=== PATIENT | female | born 1940 | race Caucasian/White ===

== ENCOUNTER 2017-03-07 14:47 | Emergency (ER) | payer MEDICARE, OTHER ==
[~2017-03-07 14:47] MED LIST: ADULT LOW DOSE81 MG PO; DILTIAZEM 24HR120 MG PO; LACTULOSE10 GM/15 M PO; PROTONIX40 MG PO; SENNA LAXATIVE1 EACH PO; SOTALOL80 MG PO; XARELTO20 MG PO
[2017-03-07 16:46] LABS: HEMOGLOBIN 13.6 gm/dl (12.3-15.3); RED BLOOD COUNT 4.21 M/UL (4.00-5.10); WHITE BLOOD COUNT 9.6 K/UL (4.5-11.0)
[2017-03-07 17:14] LABS: BUN/CREATININE RATIO 19 (0-10)
[2017-03-18] MEDS ORDERED: MIRALAX17 GM PO (08:04)
[2017-05-04] MEDS ORDERED: METOPROLOL SUCC50 MG PO (07:30)
[2017-05-04] MEDS ORDERED: DIOVAN80 MG PO (07:33)
[2017-05-04] MEDS ORDERED: SERTRALINE HCL25 MG PO (07:33)
[2017-05-04] MEDS ORDERED: HYDROCHLOROTHIA25 MG PO (07:34)
[2017-05-04] MEDS ORDERED: VERAPAMIL ER240 MG PO (07:35)
[2017-05-04] MEDS ORDERED: NORCO 5-325 TA1 EACH PO (10:07)
== END 2017-03-07 18:25 | disposition home or self-care (01) ==
LOC: ER1 14:47
PROVIDERS: Emergency Medicine
DX: K80.70 Calculus of gallbladder and bile duct without cholecystitis without obstruction (principal); K29.70 Gastritis, unspecified, without bleeding; I48.91 Unspecified atrial fibrillation; I10 Essential (primary) hypertension
CPT/HCPCS: 36415; 71010; 80053; 81001; 82150; 82550; 82553; 83690; 83874; 84484; 85025; 85610; 85730; 93005; 96374; 96375; 99284; J2270; J2405; Q9962

== ENCOUNTER 2017-03-10 08:32 | Emergency (ER) | payer MEDICARE, OTHER ==
[2017-03-10 09:47] LABS: HEMOGLOBIN 13.6 gm/dl (12.3-15.3); RED BLOOD COUNT 4.22 M/UL (4.00-5.10); WHITE BLOOD COUNT 7.6 K/UL (4.5-11.0)
[2017-03-10 10:12] LABS: BUN/CREATININE RATIO 13 (0-10)
[2017-03-18] MEDS ORDERED: MIRALAX17 GM PO (08:04)
[2017-05-04] MEDS ORDERED: METOPROLOL SUCC50 MG PO (07:30)
[2017-05-04] MEDS ORDERED: DIOVAN80 MG PO (07:33)
[2017-05-04] MEDS ORDERED: SERTRALINE HCL25 MG PO (07:33)
[2017-05-04] MEDS ORDERED: HYDROCHLOROTHIA25 MG PO (07:34)
[2017-05-04] MEDS ORDERED: VERAPAMIL ER240 MG PO (07:35)
[2017-05-04] MEDS ORDERED: NORCO 5-325 TA1 EACH PO (10:07)
== END 2017-03-10 18:30 | disposition home or self-care (01) ==
LOC: ER1 08:32
PROVIDERS: Emergency Medicine
DX: R10.9 Unspecified abdominal pain (principal); K21.9 Gastro-esophageal reflux disease without esophagitis; I11.9 Hypertensive heart disease without heart failure; E78.5 Hyperlipidemia, unspecified; Z95.0 Presence of cardiac pacemaker
CPT/HCPCS: 36415; 80053; 81001; 82150; 83605; 83690; 84484; 85025; 87086; 93005; 96361; 96374; 96375; 96376; 99284; C9113; J2405; J7030; J7050; Q9962

== ENCOUNTER → 2017-03-11 | Outpatient (CLI) | payer MEDICARE, OTHER ==
[~2017-03-11] MED LIST changes: +DIOVAN80 MG PO; +HYDROCHLOROTHIA25 MG PO; +METOPROLOL SUCC50 MG PO; +MIRALAX17 GM PO; +NORCO 5-325 TA1 EACH PO; +SERTRALINE HCL25 MG PO; +VERAPAMIL ER240 MG PO
== END ==
LOC: US 08:00
DX: R10.11 Right upper quadrant pain (principal); R11.0 Nausea; K76.0 Fatty (change of) liver, not elsewhere classified
CPT/HCPCS: 36415; 76705; 82150; 83690

== ENCOUNTER → 2017-03-18 | Day surgery (SDC) | payer MEDICARE, OTHER | END | disposition home or self-care (01) | LOC: OR 07:29 | PROVIDERS: Internal Medicine Gastroenterology | PROC: 0DB78ZX Excision of Stomach, Pylorus, Via Natural or Artificial Opening Endoscopic, Diagnostic (ICD-10-PCS; principal; 2017-03-18 13:00) | DX: K29.70 Gastritis, unspecified, without bleeding (principal); K44.9 Diaphragmatic hernia without obstruction or gangrene; K21.9 Gastro-esophageal reflux disease without esophagitis; E66.9 Obesity, unspecified; Z68.33 Body mass index [BMI] 33.0-33.9, adult; Z88.2 Allergy status to sulfonamides; Z79.82 Long term (current) use of aspirin; Z79.899 Other long term (current) drug therapy; Z90.710 Acquired absence of both cervix and uterus | CPT/HCPCS: J2250; J3010; J7030 ==

== ENCOUNTER → 2020-12-26 | Outpatient (CLI) | payer MEDICARE, OTHER ==
[~2020-12-26] MED LIST changes: +COZAAR 25MG TAB25 MG PO; +COZAAR25 MG PO; -DIOVAN80 MG PO; +KEFLEX500 MG PO; +LEVAQUIN500 MG PO; +LOPRESSOR50 MG PO; -METOPROLOL SUCC50 MG PO; +PEPCID40 MG PO; +PYRIDIUM200 MG PO; +TYLENOL W/CODEIN1 E1 PO
== END ==
LOC: EXRD 08:18
DX: R10.9 Unspecified abdominal pain (principal); K76.0 Fatty (change of) liver, not elsewhere classified
CPT/HCPCS: 76700

== ENCOUNTER → 2021-02-06 | Day surgery (SDC) | payer MEDICARE, OTHER ==
[~2021-02-06] VITALS: Ht 165.1 cm; Wt 88.9 kg
== END | disposition home or self-care (01) ==
LOC: OR 12:30
DX: R31.9 Hematuria, unspecified (principal); R39.89 Other symptoms and signs involving the genitourinary system; R35.0 Frequency of micturition; F41.9 Anxiety disorder, unspecified; E78.5 Hyperlipidemia, unspecified; F17.290 Nicotine dependence, other tobacco product, uncomplicated; I49.5 Sick sinus syndrome; Z87.440 Personal history of urinary (tract) infections; Z95.0 Presence of cardiac pacemaker; Z88.2 Allergy status to sulfonamides; Z79.899 Other long term (current) drug therapy
CPT/HCPCS: J7040

== ENCOUNTER 2022-04-13 14:08 | Emergency (ER) | payer MEDICARE, OTHER ==
[2022-04-13 16:18] LABS: HEMOGLOBIN 13.7 gm/dl (12.3-15.3); RED BLOOD COUNT 4.25 M/UL (4.00-5.10); WHITE BLOOD COUNT 9.5 K/UL (4.5-11.0)
[2022-04-13 16:39] LABS: BUN/CREATININE RATIO 14 (0-10)
[2022-04-13] MEDS ORDERED: ZOFRAN 4 MG TAB4 MG PO (20:29)
[2022-04-13] MEDS ORDERED: MEDROL DOSEPAK 24 MG PO (20:29)
== END 2022-04-13 20:30 | disposition home or self-care (01) ==
LOC: ER1 14:08
PROVIDERS: Physician Assistant
DX: R10.31 Right lower quadrant pain (principal); M54.50 Low back pain, unspecified; R11.0 Nausea; I11.9 Hypertensive heart disease without heart failure; I48.91 Unspecified atrial fibrillation; E11.9 Type 2 diabetes mellitus without complications
CPT/HCPCS: 80053; 81001; 83605; 85025; 87086; 93005; 96374; 96375; 99284; J1885; J2405

== ENCOUNTER → 2022-05-05 | Outpatient (CLI) | payer MEDICARE, OTHER ==
[~2022-05-05] MED LIST changes: +MEDROL DOSEPAK 24 MG PO; +ZOFRAN 4 MG TAB4 MG PO
== END ==
LOC: KOH-I 13:07
DX: M54.50 Low back pain, unspecified (principal); M51.36 Other intervertebral disc degeneration, lumbar region
CPT/HCPCS: 72100